=== PATIENT | female | born 1980 | race Caucasian/White ===

== ENCOUNTER 2018-12-18 22:42 | Emergency (ER) | payer BC, SELFPAY ==
[2018-12-18 22:46] VITALS: BP 129/65; PULSE 83; RESP 20; TEMP 37.5; O2SAT 100
[2018-12-18 22:50] VITALS: BP 133/76; PULSE 79; RESP 16; O2SAT 99
[2018-12-18 22:53] VITALS: BP 113/68; PULSE 69; RESP 18; O2SAT 96
[2018-12-18 23:00] VITALS: BP 110/64; PULSE 66; RESP 18; O2SAT 96
--- NOTE | 2018-12-18 23:06 | W.ED.GENAD ---
Discharge Plan Disposition Patient Disposition: HOME Condition: Good Discharge Details Chief Complaint: Allergic Clinical Impression: Drug side effects, Bug bite without infection ED Provider: Bret Lazcano Home Meds and New Rx's Prescriptions: New loratadine 10 mg capsule 10 mg PO DAILY Qty: 14 RF: 0 Discharge Instructions Instructions: General Allergic Reaction (ED) Additional Instructions: Please wrap your arm with the Erlin wrap, use cold compresses as needed. Please use the topical Benadryl to help improve the swelling. If you note no improvement please try taking loratadine tomorrow morning. Take 1 daily. You can apply the cream 2-3 times per day as needed. Please avoid taking Benadryl in the future as this may again causes a typical reaction that you had. If you notice any worsening of your symptoms, or any new symptoms such as worsening swelling, difficulty swallowing drinking or breathing, vomiting, diarrhea, fever, chills, shortness of breath, chest pain, numbness, weakness, or fainting , please return immediately to the emergency department for reevaluation. Please follow up with your primary care provider as soon as possible for reassessment and reevaluation. As always, it was a pleasure participating in your medical care today. Medical Decision Making This is a pleasant 38-year-old female who presents for an atypical reaction to Benadryl. She got bit by a bug in the left forearm, which caused some mild swelling, exam demonstrates no evidence of cellulitis or erythema. She did take a Benadryl roughly 3 hours ago, which caused her to have symptoms of jitteriness, and mild anxiety. Symptoms are notably improving, however she was concerned with the atypical symptomatology. Physical exam shows no evidence of anaphylaxis, the swelling is improved on her left forearm. No signs of airway compromise whatsoever. I feel that her signs and symptoms are secondary to an atypical reaction to the Benadryl. Although the patient's symptoms are improving I do feel that she would benefit from topical Benadryl, as well as potential loratadine if she does not notice continued improvement. We will give the topical Benadryl here for home use, as well as a prescription for loratadine. We will give an Erlin wrap, and recommend cool compresses on the arm to continue improvement of the swelling. We discussed red flags which to return. I have extensively reviewed the treatment plan and discharge instructions with the patient and their family. I have addressed all patient concerns at this time. The patient and family was made aware of what symptoms to monitor for that would warrant a return to the emergency department. Discussed the plan with the patient and family, they demonstrate verbal understanding and agreement with our assessment and plan at this time. HPI General Date/Time Provider Initiated Documentation: 12/18/18 22:46. HPI Narrative: This is a pleasant 38-year-old female with no significant past medical history except for occasional seasonal allergies, who presents today for evaluation of nervousness/medication reaction. Patient states that she was bitten by a bug while out on the trails today, and had a very mild amount of swelling in her left forearm. The initial bite and swelling started at 3 PM, at roughly 8 PM she took 25 mg of Benadryl, after taking it she felt notably anxious, jittery, and abnormal. The swelling has mildly improved in her left forearm, however these atypical anxious-like symptoms concerned her and she came in for further evaluation. She denies any IV or illicit drugs. She denies any cocaine. She denies any previous use of Benadryl. She denies any history of medication allergies. She has no other complaints at this time. No other modifying factors. She does feel that the anxiety and jittery component has been improving over the last hour or so, but not completely resolved. She denies any numbness, tingling, weakness, chest pain, shortness of breath, tearing sensation in her chest, nausea vomiting or diarrhea. She denies any difficulty breathing, or other complaint. Related Data Home Medications Medication Instructions Recorded Confirmed loratadine 10 mg PO DAILY #14 cap 12/18/18 Previous Rx's Medication Instructions Recorded loratadine 10 mg PO DAILY #14 cap 12/18/18 Allergies Allergy/AdvReac Type Severity Reaction Status Date / Time No Known Allergies Allergy Unverified 12/18/18 22:51 General Stated Complaint: Allergic LEONEL: 3 Review of Systems Review of Systems All systems reviewed & are unremarkable except as noted in HPI and below PFSH Social History Smoking/Tobacco Use Status: Never Alcohol Intake: current Alcohol Intake frequency: holidays/special occasions only Alcohol type: beer Substance use type: does not use Do you feel safe at home: Yes Do you feel safe in your relationship?: Yes Exam Narrative Exam Narrative: 1.Const: Well-nourished, Well-developed, appearing stated age 2.Eyes: PERRL, no conjunctival injection, and symmetrical lids. 3.ENT: Atraumatic external nose and ears. Moist MM. Neck: Symmetric, trachea midline, No thyromegaly. No evidence of airway swelling or compromise. No evidence of angioedema. 4.CVS: +S1/S2, No murmurs or gallops. Peripheral pulses 2+ and equal in all extremities. Brisk capillary refill in all extremities. 5.RESP: Unlabored respiratory effort. Clear to auscultation bilaterally. No wheezes rales or rhonchi 6.GI: Soft, Nontender/Nondistended, No hepatosplenomegaly. No guarding or rebound. 7.MSK: Normocephalic/Atraumatic, Extremities w/o deformity or ttp No cyanosis or clubbing, Normal movement of all extremities 8.Skin: Warm, Dry. No rashes or lesions. Left forearm demonstrates mild swelling to the left forearm, nothing extending past the left elbow. No erythema. No significant warmth. No pain, no abscess. No evidence of cellulitis. 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 Sensation grossly intact, no focal neurologic deficits. 10.Psych: (AAO) x3. Appropriate mood and affect Course Vital Signs Temperature 37.5 C 12/18/18 22:46 Pulse 83 12/18/18 22:46 Respiratory Rate 20 12/18/18 22:46 Blood Pressure 129/65 12/18/18 22:46 Pulse Oximetry 100 12/18/18 22:46 Temperature 37.5 C 12/18/18 22:46 Temperature Source Skin 12/18/18 22:46 Pulse 83 12/18/18 22:46 Respiratory Rate 20 12/18/18 22:46 Respiratory Effort Non-Labored 12/18/18 22:53 Respiratory Pattern Normal 12/18/18 22:53 Blood Pressure 129/65 12/18/18 22:46 Blood Pressure Position Sitting 12/18/18 22:46 Pulse Oximetry 100 12/18/18 22:46 Oxygen Delivery Method Room Air 12/18/18 22:46 Oxygen Flow Rate 0 12/18/18 22:46 Pain Level 2 12/18/18 22:46
[2018-12-18 23:15] VITALS: BP 104/48; PULSE 72; RESP 18; O2SAT 97
[2018-12-18 23:30] VITALS: BP 113/68; PULSE 69; RESP 18; O2SAT 96
== END 2018-12-18 23:50 | disposition home or self-care (01) ==
LOC: ER 23:55
PROVIDERS: Emergency Provider Student in an Organized Health Care Education/Training Program
DX: F41.9 Anxiety disorder, unspecified (principal); T45.0X5A Adverse effect of antiallergic and antiemetic drugs, initial encounter; S50.862A Insect bite (nonvenomous) of left forearm, initial encounter; W57.XXXA Bitten or stung by nonvenomous insect and other nonvenomous arthropods, initial encounter
CPT/HCPCS: 99283